=== PATIENT | female | born 1985 | race Caucasian/White ===

== ENCOUNTER → 2017-04-20 | Outpatient (CLI) | payer OTHER ==
--- NOTE | 2017-04-20 10:18 | US ---
EXAMINATION TYPE: US abdomen complete DATE OF EXAM: 04/20/2017 COMPARISON: NONE CLINICAL HISTORY: Generalized abdominal pain R10.84. EXAM MEASUREMENTS: Liver Length: 15.1 cm Gallbladder Wall: 0.4 cm CBD: 0.3 cm Spleen: 8.8 cm Right Kidney: 11.1 x 3.9 x 5.6 cm Left Kidney: 12.0 x 6.0 x 5.2 cm Pancreas: wnl Liver: wnl Gallbladder: thickened gb wall with multiple stones Evidence for sonographic Lee's sign: no CBD: wnl Spleen: wnl Right Kidney: No hydronephrosis or masses seen Left Kidney: No hydronephrosis or masses seen Upper IVC: wnl Abd Aorta: wnl Thickened gb wall, CBD wnl, Multiple stones The liver is homogenous. The intrahepatic portion of the IVC and proximal abdominal aorta are within normal limits. There are multiple shadowing mobile gallstones in somewhat contracted gallbladder. G allbladder wall is mildly thickened at 4 mm. No pericholecystic fluid is seen. Sonographic Lee's s ign is negative. Common bile duct is unremarkable. The visualized portions of the pancreas are homog enous. The spleen is unremarkable. Kidneys are symmetric and free of hydronephrosis. No renal lesi ons are seen. IMPRESSION: Gallstones with mild abnormal gallbladder wall thickening increased suspicion for acute c holecystitis. Sonographic Lee's sign is negative and no pericholecystic fluid is noted. Consider H SAHARA scan follow-up.
--- NOTE | 2017-04-20 10:25 | US ---
EXAMINATION TYPE: US pelvis complete transvag DATE OF EXAM: 04/20/2017 COMPARISON: NONE CLINICAL HISTORY: R10.84 GENERALIZED ABD PAIN. TECHNIQUE: Transvaginal (TV) and Transabdominal (TA) Date of LMP: 3 weeks ago EXAM MEASUREMENTS: Uterus: 6.8 x 3.8 x 5.5 cm Endometrial Stripe: 0.5 cm Right Ovary: 3.0 x 1.5 x 2.5 cm Left Ovary: 2.5 x 1.7 x 2.0 cm 1. Uterus: Anteverted 2. Endometrium: wnl 3. Right Ovary: wnl 4. Left Ovary: wnl 5. Bilateral Adnexa: wnl 6. Posterior cul-de-sac: wnl IMPRESSION: Unremarkable study.
== END | disposition home or self-care (01) ==
LOC: RADUSWWP 08:47
PROVIDERS: ATTEND Family Medicine
DX: K80.20 Calculus of gallbladder without cholecystitis without obstruction (principal); K82.8 Other specified diseases of gallbladder; R10.84 Generalized abdominal pain
CPT/HCPCS: 76700; 76830; 76856

== ENCOUNTER 2017-05-10 09:02 | Day surgery (SDC) | payer OTHER ==
[2017-05-04 12:57] VITALS: BMI 24.7
[~2017-05-10 09:02] MED LIST: DEXAMETHASONE SOD PHOSPHATE 10 MG/ML 1 ML VIAL IV ONE; FAMOTIDINE 20 MG/2 ML VIAL IV PRN; HEPARIN SODIUM,PORCINE 5,000 UNIT/ML 1 ML VIAL SQ ONE; LACTATED RINGERS 1,000 ML IV SCH; LIDOCAINE 1% 20 ML VIAL (10MG/ML) FOR IV START INTRADERMA PRN; MIDAZOLAM 2 MG/2 ML VIAL IV PRN; ONDANSETRON 4 MG/2 ML VIAL IVP PRN; SCOPOLAMINE 1.5MG/72HR PATCH TRANSDERM ONE; ceFAZolin IN SWFI 2 GM/20 ML SYRINGE IVP ONE
--- NOTE | 2017-05-10 09:53 | P.GSHP ---
History of Present Illness H&P Date: 05/10/17 Chief Complaint: Right upper quadrant pain This is a 31-year-old female with complaints of right upper quadrant pain. Patient presents today for laparoscopic cholecystectomy. She's had pain for several months. Recent ultrasound shows evidence of cholelithiasis. Past Medical History Past Medical History: No Reported History History of Any Multi-Drug Resistant Organisms: None Reported Additional Past Surgical History / Comment(s): Colonoscopy; Laparoscopy Past Anesthesia/Blood Transfusion Reactions: No Reported Reaction Smoking Status: Current every day smoker - Past Family History Mother Family Medical History: No Reported History Medications and Allergies Home Medications Medication Instructions Recorded Confirmed Type Ergocalciferol [Vitamin D2] 50,000 unit PO Q7D 05/04/17 05/10/17 History Omeprazole Magnesium [Prilosec OTC] 20 mg PO DAILY 05/04/17 05/10/17 History Tri-Estarylla 1 tab PO DAILY 05/04/17 05/10/17 History Allergies Allergy/AdvReac Type Severity Reaction Status Date / Time Penicillins Allergy Rash/Hives Verified 05/10/17 09:28 Surgical - Exam Vital Signs Temp Pulse Resp BP Pulse Ox 98 F 54 L 16 109/71 99 05/10/17 09:46 05/10/17 09:46 05/10/17 09:46 05/10/17 09:46 05/10/17 09:46 - General well developed, no distress - Eyes PERRL - ENT normal pinna - Neck no masses - Respiratory normal expansion - Cardiovascular Rhythm: regular - Abdomen Abdomen: soft, non tender Assessment and Plan Assessment: Cholelithiasis. We'll perform laparoscopic cholecystectomy.
[2017-05-10] MEDS ORDERED: BUPIVACAINE (PF) 0.25% 30 ML VIAL SQ ONE (10:23)
[2017-05-10] MEDS ORDERED: MIDAZOLAM 2 MG/2 ML VIAL ONE (10:26)
[2017-05-10] MEDS ORDERED: NEOSTIGMINE 1 MG/ML 10 ML VIAL ONE (10:26)
[2017-05-10] MEDS ORDERED: fentaNYL (PF) 50 MCG/ML 2 ML AMP ONE (10:26)
[2017-05-10] MEDS ORDERED: GLYCOPYRROLATE 0.2 MG/ML 2 ML VIAL ONE (10:26)
[2017-05-10] MEDS ORDERED: PROPOFOL 10 MG/ML 20 ML VIAL IV ONE (10:26)
[2017-05-10] MEDS ORDERED: SUCCINYLCHOLINE CHLORIDE 100 MG/5 ML SYR IV ONE (10:26)
[2017-05-10] MEDS ORDERED: LIDOCAINE 1% INJ 10MG/ML (20 ML MDV) ONE (10:26)
--- NOTE | 2017-05-10 11:12 | P.OP ---
Date of Procedure: 05/10/17 Preoperative Diagnosis: Cholelithiasis Postoperative Diagnosis: Cholelithiasis Procedure(s) Performed: Laparoscopic cholecystectomy Anesthesia: PETER Surgeon: Lloyd Cisneros Estimated Blood Loss (ml): 5 Pathology: other (Gallbladder) Condition: stable Disposition: PACU Description of Procedure: The patient was placed on the operating table. The patient received a general endotracheal tube anesthesia. The patients abdomen was prepped and draped in the usual sterile fashion. Through an infraumbilical stab incision, the fascia of the anterior abdominal wall was grasped with a pair of Kochers and then the Veress needle was placed in the peritoneal cavity. Position of the Veress needle was confirmed with positive drop test. The abdomen was then insufflated. After adequate insufflation, the 10 mm trocar was placed in the peritoneal cavity. Following this the laparoscope was placed in the peritoneal cavity. The patient was placed in the head-up, right side up position and then a 5 mm trocar was placed in the right lateral and right subcostal position under direct visualization. A 8 mm trocar was placed in the epigastric position. The gallbladder was grasped in the fundus and infundibulum. Traction on the gallbladder was placed in the lateral and the cephalad positions. The triangle of Calot was visualized.. The cystic duct was bluntly dissected until the union of the cystic duct and common bile duct was seen. The cystic duct was then divided and sealed with the Harmonic scissors. A PDS Endoloop was then placed throughout the cystic duct stump. The cystic artery divided and sealed with the Harmonic scissors. The gallbladder was then removed from the liver bed using Harmonic scissors. The gallbladder was then extracted through the epigastric port site. Operative field was checked for any bleeding spots and Harmonic scissors was used to coagulate the liver bed. The abdomen was irrigated. The trocars were removed. The skin was closed using interrupted 3-0 Vicryl suture. Dermabond dressing were applied. The patient tolerated the procedure well.
[2017-05-10] MEDS ORDERED: LACTATED RINGERS 1,000 ML IV ONE ×3 (11:18)
[2017-05-10] MEDS: HYDROmorphone 0.5 MG/0.5 ML SYRINGE IVP PRN ×4 (11:35→11:55)
[2017-05-10 11:39] VITALS: TEMP 98.1
[2017-05-10 12:05] VITALS: RESP 16
[2017-05-10] MEDS ORDERED: MEPERIDINE 50 MG/ML SYRINGE IVP ONE (12:17)
[2017-05-10] MEDS ORDERED: KETOROLAC 30 MG/ML 1 ML VIAL IVP ONE (12:18)
[2017-05-10] MEDS ORDERED: HYDROcodone/APAP 7.5-325MG 1 EACH TAB PO ONE (12:45)
[2017-05-10 13:55] VITALS: BP 110/73; PULSE 57
== END 2017-05-10 14:14 | disposition home or self-care (01) ==
LOC: OR 09:02
PROVIDERS: ATTEND Surgery
DX: K80.10 Calculus of gallbladder with chronic cholecystitis without obstruction (principal); F17.210 Nicotine dependence, cigarettes, uncomplicated; Z79.3 Long term (current) use of hormonal contraceptives; Z79.899 Other long term (current) drug therapy; Z88.0 Allergy status to penicillin
CPT/HCPCS: 81025; 88304; 47562; J2250; J1644; J1100; J2710; J2175; J0690; J2405; J2001; J3010; J1885; J0330; J2704; J1170

== ENCOUNTER 2020-07-11 22:58 | Emergency (ER) | payer OTHER ==
[2020-07-11 23:03] VITALS: TEMP 98.2
[2020-07-11] MEDS ORDERED: DIPH,PERTUS(ACELL)TETVAC-LF 0.5 ML VIAL IM ONE (23:15)
[2020-07-11] MEDS ORDERED: ceFAZolin 1,000 MG VIAL (IM USE) IM STA (23:16)
--- NOTE | 2020-07-11 23:34 | XR ---
EXAMINATION TYPE: XR hand complete LT DATE OF EXAM: 07/11/2020 COMPARISON: NONE HISTORY: Laceration TECHNIQUE: 3 views FINDINGS: I see no fracture nor dislocation. Metacarpals are intact. I see no evidence of a foreign b elvie. Joint spaces appear normal. IMPRESSION: Negative left hand exam.
[2020-07-11] MEDS ORDERED: HYDROcodone/APAP 7.5-325MG 1 EACH TAB PO ONE (23:58)
[2020-07-11] MEDS ORDERED: LIDOCAINE 1% INJ 10MG/ML (20 ML MDV) SQ ONE (23:59)
--- NOTE | 2020-07-12 00:01 | ED ---
Wound/Laceration HPI - General Chief Complaint: Wound/Laceration Stated Complaint: Hand Laceration Time Seen by Provider: 07/11/20 23:06 Source: patient Mode of arrival: ambulatory Limitations: no limitations - History of Present Illness Initial Comments: 35yo female presenting for cc of left hand laceration. pt states that she was cutting an avocado when the knife slipped going completely through the center of the left hand. Patient states she removed the knife, applied pressure and came to the ER. Denies uncontrolled bleeding, decreased ROM or strength of the digits. Patient denies loss of sensation/changes in sensation. Denies coolness or pallor of exxtremity. Denies suspected retained foreign body> Patient unsure of last tdap. Patient upon arrival appears well nontoxic in no acute distress. - Related Data Home Medications Medication Instructions Recorded Confirmed Ergocalciferol [Vitamin D2] 50,000 unit PO Q7D 05/04/17 05/10/17 Omeprazole Magnesium [Prilosec OTC] 20 mg PO DAILY 05/04/17 05/10/17 Tri-Estarylla 1 tab PO DAILY 05/04/17 05/10/17 Previous Rx's Medication Instructions Recorded Docusate [Colace] 100 mg PO BID #20 capsule 05/10/17 HYDROcodone/APAP 7.5-325MG [[place] 1 each PO Q4H PRN #30 tab 05/10/17 7.5] Cephalexin [Keflex] 500 mg PO Q6HR 7 Days #28 cap 07/11/20 HYDROcodone/APAP 7.5-325MG [[place] 1 tab PO Q4H PRN 3 Days #18 tab 07/11/20 7.5-325] Allergies Allergy/AdvReac Type Severity Reaction Status Date / Time Penicillins Allergy Rash/Hives Verified 05/10/17 09:28 Review of Systems ROS Statement: Those systems with pertinent positive or pertinent negative responses have been documented in the HPI. ROS Other: All systems not noted in ROS Statement are negative. Past Medical History Past Medical History: No Reported History History of Any Multi-Drug Resistant Organisms: None Reported Past Surgical History: Cholecystectomy Additional Past Surgical History / Comment(s): Colonoscopy; Laparoscopy Past Anesthesia/Blood Transfusion Reactions: No Reported Reaction Past Psychological History: No Psychological Hx Reported Smoking Status: Current every day smoker Past Alcohol Use History: Occasional Past Drug Use History: Marijuana - Past Family History Mother Family Medical History: No Reported History General Exam - General Exam Comments Initial Comments: General: The patient is awake and alert, in no distress, and does not appear acutely ill. Eye: Pupils are equal, round and reactive to light, extra-ocular movements are intact. No nystagmus. There is normal conjunctiva bilaterally. No signs of icterus. Ears, nose, mouth and throat: There are moist mucous membranes and no oral lesions. Musculoskeletal: 2cm entrance on the ventral aspect of the left hand and 1cm exit wound on the dorsal of mid hand. No active bleeding. no swelling/hematom noted. Normal ROM, no tenderness of all 5 digits of the left hand equal in comparison of the right. Strength 5/5 of the digits at the MCP, DIP and PIP joints of the left hand equal in comparison of the right. Sensation intact proximal and distal to injury site. Pulse at palmar arch Radial pulses equal bilaterally 2+. Distal capillary refill of all 5 digits of left hand < 3 seconds. Neurological: A&O x 3. CN II-XII intact grossly, There are no obvious motor or sensory deficits. Coordination appears grossly intact. Speech is normal. Skin: Skin is warm and dry and no rashes or lesions are noted. Psychiatric: Cooperative, appropriate mood & affect, normal judgment. Limitations: no limitations Course Vital Signs 07/11/20 07/12/20 23:00 01:04 Temperature 98.2 F Pulse Rate 121 H 85 Respiratory 20 15 Rate Blood Pressure 164/80 152/97 O2 Sat by Pulse 100 97 Oximetry Medical Decision Making - Medical Decision Making throught and through hand injury. xr (-) bleeding controlled. no expanding hematoma/swelling. patient has no clinical findings suggestive of a tendon injury. patient has full ROm of the hand. Patient laceration irrigated. closed relatively loosely and she was given IM abx, tdap updated. patient case discussed with Dr. Galan in detail who recommends oral antibiotics and timely orthopedic f/u as this type of puncture injury and area may be high risk for infection. discussed this with patient who statse she will call first thing the morning to schedule appointment for this week. patient is aware or return parameters, signs of infection/tendon compromise and was discharged appearing well with norco after opioid sheet discussed. Disposition Clinical Impression: Hand laceration Disposition: HOME SELF-CARE Condition: Good Instructions (If sedation given, give patient instructions): Laceration (ED) Additional Instructions: Please use medication as discussed. Please follow-up with ORTHOPEDICS IN THE NEXT 24-48 HOURS-Return for ANY redness, swelling, drainage, or limitation in range of motion of fingers, fevers, to the ER! Please return to emergency room if the symptoms increase or worsen or for any other concerns. Prescriptions: Cephalexin [Keflex] 500 mg PO Q6HR 7 Days #28 cap HYDROcodone/APAP 7.5-325MG [[place] 7.5-325] 1 tab PO Q4H PRN 3 Days #18 tab PRN Reason: Pain Is patient prescribed a controlled substance at d/c from ED?: No Referrals: Natalee Hernandez MD [Primary Care Provider] - 1-2 days Tan Bob PAC [[employer]] - 1-2 days Time of Disposition: 00:00
[2020-07-12 01:06] VITALS: BP 152/97; PULSE 85; RESP 15
== END 2020-07-12 01:04 | disposition home or self-care (01) ==
LOC: EC 22:58
DX: S61.412A Laceration without foreign body of left hand, initial encounter (principal); F17.200 Nicotine dependence, unspecified, uncomplicated; Z79.899 Other long term (current) drug therapy; Z79.3 Long term (current) use of hormonal contraceptives; Z88.0 Allergy status to penicillin; W26.0XXA Contact with knife, initial encounter; Y93.89 Activity, other specified; Y92.009 Unspecified place in unspecified non-institutional (private) residence as the place of occurrence of the external cause
CPT/HCPCS: 73130; 90715; 99283; 12001; 90471; 96372; J0690; J2001